=== PATIENT | male | born 1980 | race Caucasian/White ===

== ENCOUNTER 2020-04-10 22:34 | Emergency (ER) | payer OTHER ==
[~2020-04-10] VITALS: Ht 172.7 cm; Wt 59.3 kg
[2020-04-10] MEDS ORDERED: SODIUM CHLORIDE FLUSH 10ML SYR IVF ONE (23:00)
[2020-04-10] MEDS ORDERED: CEFTRIAXONE PMX 1GM/50ML 50 ML IV ONE (23:00)
--- NOTE | 2020-04-10 23:15 | NUR ---
IV ACCESS ESTABLISHED AND BLOOD DRAWN AT THIS TIME. PT VERBALIZES UNDERSTANDING FOR NEED FOR IV ANTIBIOTICS AND CT WITH CONTRAST. PT DENIES ANY NEEDS AT THIS TIME.
[2020-04-10] MEDS ORDERED: CEFTRIAXONE PMX 1GM/50ML 50 ML ONE (23:17)
--- NOTE | 2020-04-10 23:23 | NUR ---
PT MEDICATED PER NOV. AWAITING CT OF PT EYE AT THIS TIME.
[2020-04-10 23:24] LABS: BASOPHILS # (AUTO) 0.02 x10^3/uL (0-0.1); BASOPHILS % (AUTO) 1 % (0-1); EOSINOPHILS # (AUTO) 0.04 x10^3/uL (0-0.4); EOSINOPHILS % (AUTO) 1 % (1-7); LYMPHOCYTES # (AUTO) 0.87 x10^3/uL (1-3.4); LYMPHOCYTES % (AUTO) 23 % (22-44); MD NO; MEAN CORPUSCULAR HEMOGLOBIN 31.1 pg (27.5-34.5); MEAN CORPUSCULAR HGB CONC 33.5 g/dL (33.2-36.2); MEAN CORPUSCULAR VOLUME 92.7 fL (81-97); MEAN PLATELET VOLUME 9.2 fL (7.4-10.4); MONOCYTES % (AUTO) 13 % (2-9); NEUTROPHILS # (AUTO) 2.37 x10^3/uL (1.8-6.8); NEUTROPHILS % (AUTO) 62 % (42-75); PLATELET COUNT 212 x10^3/uL (130-400); RED BLOOD COUNT 4.84 x10^6/uL (4.38-5.82); RED CELL DISTRIBUTION WIDTH 13.4 % (9.4-14.8)
[2020-04-10 23:29] LABS: ALBUMIN 4.2 g/dL (3.4-5.0); ANION GAP 7 mmol/L (5-15); CHLORIDE 111 mmol/L (98-107); CREATININE 1.47 mg/dL (0.7-1.3)
--- NOTE | 2020-04-10 23:49 | NUR ---
PT BACK FROM CT AT THIS TIME.
[2020-04-11] MEDS ORDERED: OMNIPAQUE 350 MG/ML, 75ML BOTTLE ONE (00:02)
[2020-04-11 00:58] VITALS: BP 127/75
--- NOTE | 2020-04-11 01:14 | NUR ---
PT D/C WITH DC SUMMARY AND SCRIPTS. ALL QUESTIONS ANSWERED. PT VERBALIZES THE UNDERSTANDING OF NEED TO FOLLOW UP WITH OPTHAMOLOGY FIRST THING IN THE AM. PT VSS AND UPDATED IN EMR PRIOR TO D/C. PT PRESCRIPTIONS DISCUSSED AND QUESTIONS ANSWERED. PT AMBULATES TO REGISTRATION DESK WITH STEADY GAIT FOR D/C HOME WITH PARTNER; PT DENIES ANY OTHER NEEDS PERTAINING TO THIS VISIT.
== END 2020-04-11 01:17 ==
LOC: ED 22:59
DX: H10.021 Other mucopurulent conjunctivitis, right eye (principal); L03.213 Periorbital cellulitis; F17.290 Nicotine dependence, other tobacco product, uncomplicated
CPT/HCPCS: 36415; 70481; 80048; 82040; 85025; 96365; 99285; J0696; Q9967